=== PATIENT | male | born 1930 | race Caucasian/White ===

== ENCOUNTER 2017-11-07 11:43 | Inpatient (IN) | payer OTHER ==
[~2017-11-07] VITALS: Ht 182.9 cm; Wt 75.8 kg
[~2017-11-07 11:43] MED LIST: AMBEREN; ASPIRIN EC81 M1 PO; ASPIRIN325 PO; COMBIGAN EYE DR10 ML OPHTHALMIC; CONDROITIN; CRESTOR40 MG PO; DIOVAN PO; FISH OIL 1,001000 MG PO; FISHOIL; FLEXERIL PO; FOLGARD OS TAB1 EACH PO; GLUCOPHAGE XR500 MG; GLUCOSAMINE S1000 M2; LEVOTHROID125 MCG PO; LEVOTHYROXIN0.125 M1 PO; LEVOTHYROXINE 0.15MG PO; LIPITOR10 MG PO; LUMIGAN2.5 M1 OP; LUTEIN6 MG; MULTIVITAMINS; NAMENDA 10 MG T10 MG PO; NORCO 7.5-3251 EACH PO; OXYBUTYNIN 5 MG5 M1 PO; PEPCID20 MG PO; PLAVIX 75 MG TA75 MG PO; PRAVACHOL40 MG PO; PRINIVIL20 MG PO; PROBIOTIC1 EAC1 PO; RANITIDINE HCL300 M1 PO; RANITIDINE PO; RAZADYNE ER24 MG PO; SAW PALMETTO 1160 MG; SAW PALMETTO 1160 MG PO; VITAMIN C120 GM; VITAMIN D400 UNI1; [UNRECOGNIZED DRUG - OTHER]
[2017-11-07 11:44] VITALS: BP 130/68
[2017-11-07 12:16] LABS: ABSOLUTE NEUTROPHILS 4.1 thou/uL (1.4-8.2); BASOPHILS 0.3 % (0.0-2.0); EOSINOPHILS 0.5 % (0.0-3.0); HEMOGLOBIN 13.4 gm/dL (14.0-18.0); LYMPHOCYTES 11.2 % (24.0-44.0); MCH 29.4 pg (26.0-34.0); MCHC 33.4 g/dL (28.0-37.0); MCV 87.9 fL (80.0-100.0); MONOCYTES 11.7 % (1.0-8.0); POLYS 76.3 % (36.0-66.0); RBC 4.55 mil/uL (4.50-6.00); RDW 14.7 % (10.5-14.5); WBC 5.3 thou/uL (4.0-11.0)
[2017-11-07 12:22] LABS: PLATELET COUNT 87 thou/uL (150-400)
[2017-11-07 12:27] LABS: CALCIUM 8.9 mg/dL (8.5-10.1); CREATININE 1.5 mg/dL (0.7-1.3); POTASSIUM 3.9 mmol/L (3.5-5.1)
[2017-11-07 12:33] LABS: ALBUMIN 3.2 g/dL (3.4-5.0); TOTAL BILIRUBIN 0.6 mg/dL (<0.1-1.0); TOTAL PROTEIN 6.8 g/dL (6.4-8.2)
[2017-11-07] MEDS ORDERED: NORVASC5 MG PO (13:40)
[2017-11-07] MEDS ORDERED: PRAVACHOL40 MG PO (13:41)
[2017-11-07] MEDS ORDERED: RANITIDINE HCL300 MG PO (13:42)
[2017-11-07] MEDS ORDERED: NAMENDA XR28 MG PO (13:43)
[2017-11-07] MEDS ORDERED: GLUCOSAMINE CH1 EAC2 PO (13:44)
[2017-11-07] MEDS ORDERED: PROBIOTIC1 EAC1 PO (13:45)
[2017-11-07] MEDS ORDERED: MULTI VITAMIN1 EACH PO (13:46)
[2017-11-07] MEDS ORDERED: FISH OIL 1,001000 M2 (13:47)
[2017-11-07] MEDS ORDERED: [UNRECOGNIZED DRUG - OTHER] PO (13:48)
[2017-11-07] MEDS ORDERED: SYNTHROID112 MCG PO (13:49)
[2017-11-07] MEDS ORDERED: COSOPT PF EYE1 EACH OPHTHALMIC (13:49)
[2017-11-07] MEDS ORDERED: OCUVITE TABLET1 EAC1 PO (13:50)
[2017-11-07] MEDS ORDERED: SAW PALMETTO C1 EACH PO (13:50)
[2017-11-07] MEDS ORDERED: LUMIGAN2.5 M1 OP (13:51)
[2017-11-07 19:33] VITALS: BP 112/48
[2017-11-07 21:27] VITALS: BP 124/69
[2017-11-07 23:39] VITALS: BP 131/67
[2017-11-08 02:47] LABS: URINE BILIRUBIN NEGATIVE (Negative); URINE BLOOD NEGATIVE (Negative); URINE CLARITY CLEAR; URINE COLOR YELLOW; URINE GLUCOSE-RANDOM* NEGATIVE (Negative); URINE KETONES TRACE (Negative); URINE LEUKOCYTES NEGATIVE (Negative); URINE NITRITE NEGATIVE (Negative); URINE PROTEIN (DIPSTICK) TRACE (Negative); URINE SPECIFIC GRAVITY 1.015 (1.005-1.035)
[2017-11-08 04:25] VITALS: BP 141/69
[2017-11-08 07:28] VITALS: BP 158/68
[2017-11-08 07:47] VITALS: BP 138/72
[2017-11-08 16:16] VITALS: BP 128/74
[2017-11-08 20:05] VITALS: BP 167/100
[2017-11-09 03:20] VITALS: BP 145/89
[2017-11-09 06:59] LABS: CALCIUM 9.2 mg/dL (8.5-10.1); CREATININE 1.1 mg/dL (0.7-1.3); POTASSIUM 3.5 mmol/L (3.5-5.1)
[2017-11-09 08:00] VITALS: BP 155/79
[2017-11-09 19:49] VITALS: BP 153/88
[2017-11-10 03:21] VITALS: BP 143/90
[2017-11-10] MEDS ORDERED: CEFDINIR300 MG PO (07:53)
[2017-11-10 08:07] VITALS: BP 156/96
[2017-11-10 12:07] VITALS: BP 156/96
[2017-11-10 12:46] VITALS: BP 143/84
[2017-11-10 14:46] VITALS: BP 150/79
== END 2017-11-10 16:43 | disposition home health service (06) | DRG 871 ==
LOC: ER 11:43 → 4S 13:38 → EROBS 13:38 → 4S 19:59 → ENTRNSPT 11-10 15:49 → 4S 11-10 16:43
PROVIDERS: Emergency Medicine; Family Medicine
DX: A41.9 Sepsis, unspecified organism (principal); J18.9 Pneumonia, unspecified organism; N17.9 Acute kidney failure, unspecified; E03.9 Hypothyroidism, unspecified; M17.0 Bilateral primary osteoarthritis of knee; I10 Essential (primary) hypertension; E78.5 Hyperlipidemia, unspecified; D69.6 Thrombocytopenia, unspecified; F03.90 Unspecified dementia, unspecified severity, without behavioral disturbance, psychotic disturbance, mood disturbance, and anxiety; R41.0 Disorientation, unspecified; Z79.82 Long term (current) use of aspirin; Z90.49 Acquired absence of other specified parts of digestive tract; Z95.5 Presence of coronary angioplasty implant and graft; Z88.8 Allergy status to other drugs, medicaments and biological substances; Z87.891 Personal history of nicotine dependence
CPT/HCPCS: 10100

== ENCOUNTER → 2017-11-29 | Outpatient (CLI) | payer OTHER ==
[~2017-11-29] MED LIST changes: +CEFDINIR300 MG PO; +COSOPT PF EYE1 EACH OPHTHALMIC; +FISH OIL 1,001000 M2; +GLUCOSAMINE CH1 EAC2 PO; +MULTI VITAMIN1 EACH PO; +NAMENDA XR28 MG PO; +NORVASC5 MG PO; +OCUVITE TABLET1 EAC1 PO; +RANITIDINE HCL300 MG PO; +SAW PALMETTO C1 EACH PO; +SYNTHROID112 MCG PO; +[UNRECOGNIZED DRUG - OTHER] PO
== END ==
LOC: RAD 15:14
DX: J18.9 Pneumonia, unspecified organism (principal); I10 Essential (primary) hypertension; E11.9 Type 2 diabetes mellitus without complications; E78.00 Pure hypercholesterolemia, unspecified; E05.90 Thyrotoxicosis, unspecified without thyrotoxic crisis or storm

== ENCOUNTER 2019-06-19 11:49 | Inpatient (IN) | payer OTHER ==
[~2019-06-19] VITALS: Ht 185.4 cm; Wt 63.3 kg
[2019-06-19 11:50] VITALS: BP 104/67
[2019-06-19 13:11] LABS: HEMOGLOBIN 12.9 gm/dL (14.0-18.0); MCH 29.6 pg (26.0-34.0); MCHC 33.1 g/dL (28.0-37.0); MCV 89.5 fL (80.0-100.0); PLATELET COUNT 175 thou/uL (150-400); RBC 4.36 mil/uL (4.50-6.00); RDW 16.4 % (10.5-14.5)
[2019-06-19 13:19] LABS: ANION GAP 8 mmol/L (7-16); BUN 51 mg/dL (7-18); CHLORIDE 111 mmol/L (98-107); CO2 27 mmol/L (21-32); CREATININE 1.6 mg/dL (0.7-1.3); GLUCOSE 118 mg/dL (74-106); POTASSIUM 5.7 mmol/L (3.5-5.1); SODIUM 146 mmol/L (136-145)
[2019-06-19 13:29] LABS: ALBUMIN 2.5 g/dL (3.4-5.0); LIPASE 90 U/L (73-393); SGOT 61 U/L (15-37); SGPT 47 U/L (30-65); TOTAL BILIRUBIN 1.2 mg/dL (<0.1-1.0); TOTAL PROTEIN 7.4 g/dL (6.4-8.2); TROPONIN-I <0.06 ng/mL (<0.06)
[2019-06-19 13:43] LABS: ABSOLUTE NEUTROPHILS 7.2 thou/uL (1.4-8.2)
[2019-06-19 13:56] LABS: URINE BLOOD 3+ (Negative); URINE CLARITY CLEAR; URINE COLOR YELLOW; URINE GLUCOSE-RANDOM* NEGATIVE (Negative); URINE KETONES TRACE (Negative); URINE LEUKOCYTES NEGATIVE (Negative); URINE NITRITE NEGATIVE (Negative); URINE PROTEIN (DIPSTICK) 1+ (Negative); URINE SPECIFIC GRAVITY >= 1.030 (1.005-1.035)
[2019-06-19 13:59] LABS: ICTOTEST (BILI CONFIRMATORY) Negative (Negative); URINE BILIRUBIN NEGATIVE (Negative)
[2019-06-19 14:09] LABS: AMORPHOUS URATES Moderate /LPF (None Seen); BACTERIA None Seen /HPF (None Seen); CASTS None Seen /LPF (None Seen); SQUAMOUS None Seen /LPF (0-3); URINE WBC 0-5 Rare /HPF (0-5)
[2019-06-19 15:09] VITALS: BP 112/65
[2019-06-19 15:25] VITALS: BP 109/58
[2019-06-19 15:57] VITALS: BP 141/72
--- NOTE | 2019-06-19 16:12 | NUR ---
pt received from er to room 356. pt is a x2-3 person (max assist) lift. pt wc bound at facility. pt noted to be "hypersensitve" when his skin is touched and he does not like it. family states the pt fell a week ago and has bruises to his back and buttock, family states he has no broken bones from the fall. pt wears glasses and they are on him. pt settled into his room. family states he has been her before.
[2019-06-19] MEDS ORDERED: TRAMADOL 50 MG50 MG PO (17:02)
[2019-06-19] MEDS ORDERED: SERTRALINE HCL50 MG PO (17:02)
[2019-06-19 19:38] VITALS: BP 129/76
[2019-06-19] MEDS ORDERED: TYLENOL325 MG PO (20:03)
[2019-06-19] MEDS ORDERED: LUMIGAN2.5 M1 OPHTHALMIC (20:04)
[2019-06-19] MEDS ORDERED: DEPAKOTE500 MG PO (20:05)
[2019-06-19] MEDS ORDERED: RAZADYNE 8 MG PO (20:06)
[2019-06-19] MEDS ORDERED: ATIVAN0.5 MG PO (20:08)
[2019-06-19] MEDS ORDERED: MEMANTINE HCL E28 MG PO (20:09)
[2019-06-19 23:26] VITALS: BP 105/80
[2019-06-20 04:28] VITALS: BP 122/70
--- NOTE | 2019-06-20 05:01 | NUR ---
PATIENT IS PROGRESSING SLOWLY IN HIS CARE PLAN. HE WAS A NEW ADMISSION TO THE UNIT ONE HOUR PRIOR TO SHIFT CHANGE. PATIENT IS DISORIENTED TIMES FOUR AND HAS ADVANCED DEMENTIA. PATIENT FREQUENTLY CRIES OUT DUE TO WHAT NURSE PERCEIVES FEAR. VITAL SIGNS STABLE WITH NURSE NOT PERCEIVING ANY PAIN OR NAUSEA ON BEHALF OF PATIENT. BREATHING STABLE EVIDENCED BY ASSESSMENT AND SPOT OXYGENATION CHECKS. PATIENT IS A HIGH ASPIRATION RISK AND HAS FAILED NURSING SWALLOW ASSESSMENT. ORAL CARE PROVIDED FREQUENTLY DUE TO DRY SLOUGHED SKIN IN MOUTH. TURNS WITH SKIN CARE PROVIDED FOR URINARY INCONTINENCE. CONTINUE PLAN OF CARE.
[2019-06-20 08:20] VITALS: BP 134/78
--- NOTE | 2019-06-20 09:12 | EKG ---
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1930 Requested By: Jeronimo Cifuentes Order Number: [id number] MD: Pop Hernandez Measurements Intervals [place] Rate: 91 P: 73 ME: 138 QRS: -30 QRSD: 92 T: 63 QT: 362 QTc: 446 Interpretive Statements Sinus rhythm Left axis deviation Repol abnrm, severe global ischemia (LM/MVD) Compared to ECG 08/04/2015 10:11:30 Left-axis deviation now present ST segment abnormality is more pronounced Electronically Signed On 06-20-2019 9:12:35 CDT by Pop Hernandez [email or web address] ��������������������������������������������� <ELECTRONICALLY SIGNED> ���������������������������������������� By: Pop Hernandez MD, [facility] ��������������������������������������������� 06/20/19 0912 1241 1241 Pop Hernandez MD, [facility] /EPI
--- NOTE | 2019-06-20 09:12 | EKG ---
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1930 Requested By: Jeronimo Cifuentes Order Number: [id number] MD: Obdulio Gomez Measurements Intervals [place] Rate: 89 P: 59 VT: 143 QRS: -26 QRSD: 93 T: 63 QT: 356 QTc: 434 Interpretive Statements Sinus rhythm Probable left atrial enlargement Borderline left axis deviation ST depression, consider ischemia, lateral lds Compared to ECG 08/04/2015 10:11:30 Possible ischemia now present ST (T wave) deviation still present Electronically Signed On 06-20-2019 9:12:33 CDT by Obdulio Gomez [email or web address] ��������������������������������������������� <ELECTRONICALLY SIGNED> ���������������������������������������� By: Obdulio Gomez MD ��������������������������������������������� [birth year]1912 1356 1356 Obdulio Gomez MD /EPI
[2019-06-20 12:01] VITALS: BP 165/85
[2019-06-20] MEDS ORDERED: ATIVAN0.5 MG PO (14:38)
[2019-06-20 14:45] VITALS: BP 138/79
--- NOTE | 2019-06-20 15:00 | NUR ---
INITIAL ASSESSMENT: SW received consult due to patient being admitted from a memory care facility. SW reviewed chart and spoke with nursing. Pt was admitted from [facility] [place] due to JUVENAL. Pt with hx of dementia. SW met with pt and dtr, Yvette, at bedside. Introduced role of SW. Pt was sleeping during time of SW visit. Pt's dtr provided assessment info. Pt has been at [facility] since the beginning of April. Per Yvette, pt has declined a lot since moving into the facility. Pt's lives in their home and has [facility] [place] 5 hrs/day. Pt's is unable to provide care to pt due to her recent CVA. Pt's family is supportive and involved in pt's and spouse's care. Pt to have swallow eval today. Pt's dtr states pt is a DNR and would not want to have a peg tube placed if he fails the swallow eval. Pt's PCP is Dr. Roy. SW is following to assist as needed with discharge planning.
--- NOTE | 2019-06-20 15:05 | NUR ---
HIGH RISK ASSESSMENT; ALBUMIN 2.5, INCONTINENT OF URINE. UNABLE TO TURN HIMSELF OR FEED HIMSELF. COMBATIVE. NO WOUNDS. RECOMMENDATION; LOW AIR LOSS PUMP, PRAFO BOOTS ZGUARD TO TIMOTHY-RECTAL AREA. RN PRESENT
[2019-06-20 19:17] VITALS: BP 136/88
--- NOTE | 2019-06-20 20:06 | NUR ---
Received awake on bed. On room air. Pt disoriented x 4, on and off screaming- unable to verbalize if due to pain but to my assessment, pt not in pain. With daughter at bedside. On room air, with stand by suction set up- high risk for aspiration; for video swallow test today. Pt temporarily placed on NPO until video swallow test has been done. Incontinent of bowels and bladder, checked frequently and changed as needed. With 1/2 NS at 100cc/hr, infusing at R FA- covered with protective wrap. On heart monitoring- telemetry strip attached to chart. With bruises on his back due to previous fall from his facility, sacrum blanching- Risk assessment done by wound nurse this PM; advised pt to wear heel boots- ordered from CS by US and applied to pt, low air loss mattress ordered on wound nurse's behalf- night staff informed to place once available, to apply Z guard on pt's sacrum. Followede up with ST re: video swallow test, between 12-2pm- daughter updated. Pt came back from Video swallow test- advised for pt to have pureed diet and nectar thick fluids; missed scheduled medication re-started after coming back from test, crushed tablets and mixed with apple sauce as per ST advice, pt tolerated and no episode of coughing noted. Mouth care done to patient; turned frequently. IV at R FA infiltrated, transferred to L FA by senior staff nurse, IVF resumed as ordered. [employer] consult placed in due to weight loss as per daughter. To continue monitoring patient.
[2019-06-21 03:12] VITALS: BP 134/74
[2019-06-21 05:38] LABS: CALCIUM 8.4 mg/dL (8.5-10.1); CREATININE 1.1 mg/dL (0.7-1.3); POTASSIUM 3.3 mmol/L (3.5-5.1)
--- NOTE | 2019-06-21 05:40 | NUR ---
PT MAKING POOR PROGRESS TOWARDS GOALS. PT HAS ONLY STATED HIS NAME, HAS NOT UTTERED ANY OTHER WORDS. PT FEARFUL, RIGID BODY UPON TURNING AND PERFORMING CARES. INCONTINENT BM X2 OVERNIGHT.
[2019-06-21 07:50] VITALS: BP 115/68
[2019-06-21 11:27] VITALS: BP 128/61
--- NOTE | 2019-06-21 15:48 | NUR ---
dp sent clinicals and speech eval to [facility], [place], [place] fax [phone], phone [phone]. Not sure of anticipated dc date at this time. [facility] called [facility] and talked to Vitaly, who verified they received clinical information that was faxed.
--- NOTE | 2019-06-21 16:14 | NUR ---
SW reviewed chart and spoke with nursing. Pt did have ST eval yesterday. Pt on pureed diet with honey thick liquids. material planner faxed clinical info to [facility] for review. ARIANA is following to assist as needed with discharge planning.
[2019-06-21 16:59] VITALS: BP 133/34
--- NOTE | 2019-06-21 19:28 | NUR ---
care of pt assumed this am @ ~0700. pt noted to be resting quietly and comfortably in his bed. pt's daughter, Ami, at this am as she is wanting to talk to dr. younger this am. pt also visited by his other daughter, Yvette, and his , Michaela today. pt more awake and engaging today than seen on Wednesday when rn cared for him. pt noted to verbalize a few words when trying to communicate w/ family and staff. pt seen by this am, and they worked w/ feeding him at lunch. pt w/ a fair appetite for breakfast, but became a poor appetite w/ lunch and dinner. pt needs his medication crushed and placed in applesauce. pt noted to be incontinent of bowel and bladder today, no condom catheter used today. pt noted to still have his tactile hypersensitivity. pt's daughter states that the family is thinking about pallative care for him and she is wondering about when he will be discharged.
[2019-06-21 19:38] VITALS: BP 115/77
--- NOTE | 2019-06-22 02:32 | NUR ---
Patient making slow progress towards outcome goals. Vital signs and rhythm stable. Incontinent of bowel and bladder. Appetite inconsistent, ate 50% ensure pudding. Turned to sides.
[2019-06-22 03:42] VITALS: BP 117/54
[2019-06-22 05:57] LABS: CALCIUM 8.1 mg/dL (8.5-10.1); CREATININE 0.9 mg/dL (0.7-1.3); POTASSIUM 3.6 mmol/L (3.5-5.1)
[2019-06-22 08:20] VITALS: BP 147/76
--- NOTE | 2019-06-22 13:05 | NUR ---
SW reviewed chart and spoke with nursing and attending physician. PT/OT ordered to evaluate pt. Pt's family would like for pt to return to [facility] [place] when medically stable. ARIANA is following to assist a needed with discharge planning.
--- NOTE | 2019-06-22 14:11 | NUR ---
dp sent [facility]h referral [facility], faiza keith at [facility]
[2019-06-22 15:37] VITALS: BP 97/54
--- NOTE | 2019-06-22 17:40 | NUR ---
ASSUMED PATIENT CARE AT 0700. AWAKE. AGITAED WITH CARE. VERY DROWSY. POOR APPETIE. ONLY HAVE A FEW BITS EACH MMEALS. BLE VERY STIFFNESS. ASSISTED TURN. NOT TOWARDS POC GOALS.
[2019-06-22 19:30] VITALS: BP 122/75
--- NOTE | 2019-06-23 03:12 | NUR ---
Patient making slow progress towards outcome goals. Vital signs and rhtym stable. High fall risks, fall precautions in place. Patient a lot calmer, less yelling/acting out when turned. Flat affect. Refused HS snack. Incontinent of urine, external male catheter in place.
[2019-06-23 04:20] VITALS: BP 126/64
[2019-06-23 07:39] VITALS: BP 147/86
[2019-06-23] MEDS ORDERED: ZYPREXA 5 MG TAB5 M1 PO (12:12)
--- NOTE | 2019-06-23 12:27 | NUR ---
SW reviewed chart and spoke with nursing and attending physician. Pt's family is agreeable with returning to [facility] [place] with palliative care/hospice. Pt is currently on service with [facility], who also has hospice available. Per physician, pt would need a hospital bed delivered prior to pt returning. ARIANA left voice message for pt's dtr, Ami, to discuss discharge plan. ARIANA is following to assist as needed with discharge planning.
[2019-06-23 16:04] VITALS: BP 115/72
--- NOTE | 2019-06-23 17:40 | NUR ---
Assumed pt care this am, dementia is severe, can hardly understand when he speaks. Pt has tactile hypersensitivity. Pt is incontinent and has an external patrick. Fluids are encouraged and has to be given with a spoon since this his honey thicked liquids, pt is a feeder and requires alot of time and encouragement. Medication is crushed and given with pudding or apple sauce, supplements encouraged. Daughter is at the bedside and help with the plan of care. POC followed, q 2 to 3 hour turns done.
[2019-06-23 19:50] VITALS: BP 113/70
[2019-06-24 05:10] VITALS: BP 142/85
--- NOTE | 2019-06-24 05:52 | NUR ---
PATIENT IS CONFUSED. PATIENT IS ROOM AIR. PATIENT IS Q2TURN. PATIENT IS INCONTIENT. PATIENTS LBM WAS THE 5TH. PATIENT IS SINUS AJAY ON TELE. PATIENT TAKES PILLS CRUSHED. PATIENT IS PENDING DISCHARGE TO FACILITY. PATIENT DENIES PAIN. PATIENT IS CALM AND RESTFUL IN BED. WCM. PATIENT IS PROGRESSING TO GOALS. PATIENT HAS A COUGH. FAIR COUGH EFFORT.
[2019-06-24 07:22] VITALS: BP 112/70
--- NOTE | 2019-06-24 14:55 | NUR ---
ASSUMED PATIENT CARE AT 0700. AWAKE. PATIENT MORE DRWOSY AFTER BREAKFAST. CONTACTED [facility] IN AM ABOUT DC. HOSPICE CALLED BACK THAT THEY ARE READY BUT [facility] SHORT OF NURSING STAFF ON THIS WEEKEND. PATIENT SLOWLY TOWARDS POC GOALS.
[2019-06-24 15:47] VITALS: BP 141/75
[2019-06-24 19:27] VITALS: BP 102/56
[2019-06-25 03:44] VITALS: BP 128/70
--- NOTE | 2019-06-25 04:42 | NUR ---
PATIENT IS PROGRESSING SLOWLY IN HIS CARE PLAN. VITAL SIGNS STABLE WITH NURSE NOT PERCEIVING ANY PAIN OR NAUSEA ON BEHALF OF PATIENT. HE REMAINS AWAKE AND DISORIENTED TIMES FOUR. PATIENT HAS EXHIBITED THE ABILITY TO FOLLOW SIMPLE DIRECTION. BREATHING STABLE ON ROOM AIR EVIDENCED BY ASSESSMENT AND SPOT OXYGENATION CHECKS. NURSE HAS ATTEMPTED TO OFFER PATIENT HYDRATION FREQUENTLY FOLLOWING SWALLOW PRECAUTIONS. FREQUENT SUCTION AND ORAL CARE PROVIDED. TURNS PER PROTOCOL WITH SKIN CARE. PATIENT WAS GIVEN BED BATH OVER SHIFT. EXTERNAL CATHETER APPLIED. CONTINUE PLAN OF CARE.
[2019-06-25 07:20] VITALS: BP 142/80
--- NOTE | 2019-06-25 12:56 | NUR ---
pt's assessment has done, pt is awake, but pt is confused , pt can follow some commands, pt has lots of sputum and pt needs suction , pt needs help ADL, pt's vs are stable at this time. pt may d/c to nuring home tomorrow.
[2019-06-25 17:30] VITALS: BP 120/62
--- NOTE | 2019-06-25 19:34 | NUR ---
PATIENT TRANSFERED FROM 3W, ROOM 351 TO 4W, ROOM 462 AT ABOUT 1645. PATIENT ORIENTED TO SELF AND MUMBLES INCONTINENT OF BOWEL AND BLADDER WITH Q2 TURNS. PATIENT SCHEDULED TO DC ON WEDNESDAY TO [facility]. FAMILY REQUESTS DISCHARGE ABOUT 3PM ON WEDNESDAY.
[2019-06-25 19:42] VITALS: BP 104/44
[2019-06-26 04:24] VITALS: BP 134/87
--- NOTE | 2019-06-26 05:04 | NUR ---
PATIENT ASSESSED AND IS ALERT X 1. SKIN WARM AND DRY. RESP EVEN AND UNLABORED. LUNGS COURSE AND HE COUGHS AT TIMES. TAKEN CRUSHED MEDS OK. HOB UP ALL THE TIMES. TAKES HONEY THICKEN LIQUIDS WELL. WILL POSSIBLE GO TO [facility] THIS AM. INCONT OF BOWEL AND BLADDER. TURNED Q 2 HOURS AND PRN. COCCYX IS SLIGHTLY REDDISH. NO OPEN AREAS NOTED.REMAINS A FALL RISK. BED ALARM ON. IS A DNR. PROFO BOOTS ON BILATERALLY. IV SL HEALTHY AND FLUSHES WELL. FAMILY REQUEST NO NARCOTICS. ON ROOM AIR. VS STABLE. CONT TO POSSIBLE DC TO [facility] AWAITING FOR DR FONTAINE TO SEE HIM. CONT PLAN OF CARE.
[2019-06-26 08:07] VITALS: BP 132/61
[2019-06-26 08:43] VITALS: BP 132/61
--- NOTE | 2019-06-26 11:27 | NUR ---
WOUND CARE FOLLOW UP; THE AREA TO THE SACRUM/COCCYX IS STABLE AND HAS NOT ADVANCED AND IT STILL BLANCHES. RECOMMENDATIONS; CONTINUE ZGUARD NO CHANGES TO POC DISCUSSED WITH RN
--- NOTE | 2019-06-26 14:22 | NUR ---
DISCHARGE NOTE: SW reviewed chart and spoke with nursing and attending physician. Pt was transferred to 4W from 3W over the weekend. [facility] was not able to accept pt over the weekend due to staffing. WINTER Banda at [facility] left SW a voice message Wednesday evening. Hospice delivered DME to the facility over the weekend. SW confirmed with Hospice that they are able to admit pt today. SW spoke with Mayi in intake at [facility]. SW faxed final discharge orders/summary to [facility] and [facility]. SW left voice message for Veronika. SW spoke with pt's dtr, Ami, via phone to provide update and discuss discharge. Pt's dtr requests ambulance to be arranged for 1500. SW arranged ambulance transportation at 1500 via [facility]. [facility] form and outside the hospital DNR form place on pt's chart. Choice of Vendor Form also placed on pt's chart. Nursing to call report. Chart copy requested. ARIANA updated commercial analyst. No additional SW needs identified at this time, but is available to assist should needs arise.
--- NOTE | 2019-06-26 14:28 | NUR ---
Assumed pt care this am, alert but will rarely respond. Pt is a total feeder, on honey thick liquids and pureed foods, medication is given crushed with supplement pudding. Small frequent and hydration was done thorough out the day. Pt turned every 2 hours, a condom catheter was placed due to incontinence. Seen by wound care, Z guard placed on the afftected area. POC followed, awaiting electrician substation supervisor to go to the hospice. Report given to the facility.
== END 2019-06-26 14:56 | disposition hospice, inpatient (51) | DRG 91 ==
LOC: ER 11:49 → 3W 14:13 → EROBS 14:13 → 3W 15:32 → 4W 06-25 16:57
PROVIDERS: Emergency Medicine; ADMIT Family Medicine
DX: G92 Toxic encephalopathy (principal); N17.0 Acute kidney failure with tubular necrosis; F03.90 Unspecified dementia, unspecified severity, without behavioral disturbance, psychotic disturbance, mood disturbance, and anxiety; E05.90 Thyrotoxicosis, unspecified without thyrotoxic crisis or storm; M17.0 Bilateral primary osteoarthritis of knee; I10 Essential (primary) hypertension; E78.5 Hyperlipidemia, unspecified; Z95.1 Presence of aortocoronary bypass graft; Z90.49 Acquired absence of other specified parts of digestive tract; Z87.891 Personal history of nicotine dependence; Z79.82 Long term (current) use of aspirin; Z79.899 Other long term (current) drug therapy; Z88.8 Allergy status to other drugs, medicaments and biological substances
CPT/HCPCS: 10047; 10879